=== PATIENT | male | born 1975 | race Caucasian/White ===

== ENCOUNTER 2021-08-19 18:00 | Outpatient (CLI) | payer BC | END 2021-08-19 18:01 | disposition home or self-care (01) | LOC: SLEEPLAB 18:00 | PROVIDERS: ATTEND Family Medicine | DX: G47.33 Obstructive sleep apnea (adult) (pediatric) (principal); R53.83 Other fatigue; R06.83 Snoring; F32.9 Major depressive disorder, single episode, unspecified; E11.9 Type 2 diabetes mellitus without complications; G47.00 Insomnia, unspecified; E66.9 Obesity, unspecified; Z68.42 Body mass index [BMI] 45.0-49.9, adult | CPT/HCPCS: 95806 ==

== ENCOUNTER 2025-06-12 16:59 | Emergency (ER) | payer BC ==
[2025-06-12] MEDS ORDERED: Ketorolac Tromethamine 30 MG (1 mL) VIAL ONE (18:35)
[2025-06-12] MEDS ORDERED: Ondansetron PF 4 MG/2 ML Vial ONE ×2 (18:37→20:19)
[2025-06-12 18:38] LABS: #Basophils 0.05 10x3/uL (0.0-0.2); #Eosinophils 0.24 10x3/uL (0.0-0.7); #Monocytes 1.47 10x3/uL (0.11-0.59); #Neutrophils 6.69 10x3/uL (1.40-6.50); %Basophils 0.5 % (0.0-1.0); %Eosinophils 2.2 % (0.0-10.0); %Lymphocytes 20.4 % (21.0-51.0); %Monocytes 13.8 % (0.0-10.0); %Neutrophils 62.6 % (42.0-75.0); Hematocrit 42.9 % (42.0-52.0); Hemoglobin 14.3 g/dL (14.0-18.0); Mean Corpuscular Hemoglobin 31.0 pg (27.0-31.0); Mean Corpuscular Volume 92.9 fL (78.0-98.0); Platelet Count 221 10x3/uL (130-400); Red Blood Cell (RBC) Count 4.62 mill/uL (4.70-6.10); White Blood Cell (WBC) Count 10.68 10x3/uL (4.8-10.8)
[2025-06-12] MEDS ORDERED: Cefepime 2 GM VIAL ONE (18:40)
[2025-06-12 18:57] LABS: ALT (SGPT) 40 U/L (Less than 45); AST (SGOT) 36 U/L (11-34); Albumin 4.1 g/dL (3.1-4.5); Alkaline Phosphatase 97 U/L (40-110); Anion Gap 16 mmol/L (10-20); BUN (Urea Nitrogen) 14 mg/dL (8.4-25.7); Bilirubin, Total 0.4 mg/dL (0.3-1.2); Calc. Creatinine Clearance 0 mL/min (70-130); Calcium 9.9 mg/dL (7.8-10.44); Carbon Dioxide 24 mmol/L (22-29); Chloride 101 mmol/L (98-107); Globulin 4.6 g/dL (2.4-3.5); Glucose 109 mg/dL (70-105); Lipase 9 U/L (8-78); Potassium 4.0 mmol/L (3.5-5.1); Sodium 137 mmol/L (136-145)
[2025-06-12] MEDS ORDERED: Lidocaine 1% w/Epinephrine 1:100K 20 ML VIAL ONE (20:17)
== END 2025-06-12 21:38 | disposition home or self-care (01) ==
LOC: ERS 16:59
DX: L02.211 Cutaneous abscess of abdominal wall (principal); E11.9 Type 2 diabetes mellitus without complications; I10 Essential (primary) hypertension
CPT/HCPCS: 10060; 36415; 74177; 80053; 83605; 83690; 85025; 87040; 87070; 87077; 87205; 96365; 96366; 96375; 96376; J0692; J1885; J2270; J2405; J3010